=== PATIENT | female | born 2005 | race Caucasian/White ===

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

== ENCOUNTER 2024-03-05 10:26 | Emergency (ER) | payer BC, SELFPAY ==
[2024-03-05 10:37] VITALS: BP 119/86
[2024-03-05 10:38] LABS: Glucose - Point of Care 95 mg/dl (70-99)
[2024-03-05 10:59] LABS: % Basophils 0.6 % (0-2); % Immature Granulocytes 0.3 % (0-0.5); % Lymphocytes 27.7 % (20.5-51.1); % Neutrophils 61.4 % (42.2-75.2); Absolute Basophils 0.1 10^3/uL (0-0.2); Absolute Eosinophils 0.2 10^3/uL (0-0.7); Absolute Lymphocytes 2.7 10^3/uL (1.2-3.4); Absolute Monocytes 0.8 10^3/uL (0.1-0.6); Hematocrit 42.4 % (37.0-47.0); Hemoglobin 13.6 g/dL (12.0-16.0); Mean Corp Hgb Conc. 32.1 g/dL (33.0-37.0); Mean Corpuscular Hgb 25.4 pg (27.0-31.0); Mean Corpuscular Volume 79.3 fL (81.0-99.0); Mean Platelet Volume 10.1 fL (7.4-10.4); Nucleated Red Blood Cells % 0 %; Platelet Count 342 10^3/uL (130-400); Red Blood Cell Count 5.35 10^6/uL (4.20-5.40); Red Cell Dist. Width 13.2 % (11.5-14.5); White Blood Cell Count 9.7 10^3/uL (4.8-10.8)
[2024-03-05 11:16] LABS: HCG, Serum Qualitative Screen Negative
[2024-03-05 11:32] LABS: ALT (SGPT) 13 U/L (0-35); AST (SGOT) 19 U/L (14-36); Albumin 4.5 g/dl (3.5-5.0); Alkaline Phosphatase 84 U/L (38-126); Blood Urea Nitrogen 7 mg/dl (7-17); Calcium 9.2 mg/dl (8.4-10.2); Carbon Dioxide 24 mmol/L (22-30); Chloride 105 mmol/L (98-107); Glucose 99 mg/dl (70-99); Potassium 4.3 mmol/L (3.5-5.1); Sodium 139 mmol/L (135-145); Total Bilirubin 0.5 mg/dl (0.2-1.3); Total Protein 7.5 g/dl (6.3-8.2); eGFR > 60.00
--- NOTE | 2024-03-05 12:44 | ED.GENMED ---
History of Present Illness
General
Chief Complaint: Weakness
Time Seen by Provider: 03/05/24 12:16
History of Present Illness
History of Present Illness:
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
morning. Increased thirst. Concern for low sodium. Has used her desmopressin as prescribed today.
Past History
Past History
ED Past Medical History: Psychiatric
ED Past Surgical History: Other (Rathke cleft surgery)
Social History
Personal: Single
Living: with family
Review of Systems
Review of Systems
Allergies reviewed?: Yes
All Other Systems: ROS reviewed and negative except as documented in HPI and ROS
Phy Exam
Physical Exam
Physical Exam:
GEN: Well appearing, NAD, WDWN
HEENT: Oral mucosa moist, no scleral icterus
Cardiac: Regular rate and rhythm, no murmurs
Lung: No respiratory distress, no tachypnea, lungs clear to auscultation bilaterally
Abdomen: Soft, grossly nontender
MSK: No gross deformity or injuries
Skin: Good color, no pallor or jaundice, no rashes
Neuro: AO x3, moves all extremities freely
Psych: Calm, cooperative
Course
Orders/Labs/Results
Orders:
Orders
03/05/24 10:27
Electrocardiogram (*1) Urgent
Reason for Study: Vertigo / Dizzy
EKG- Treatment ONCE
03/05/24 10:41
Test Result ONCE
03/05/24 10:53
Complete Blood Count/With Diff Urgent
Comprehensive Metabolic Panel Urgent
HCG, Serum Qualitative Screen Urgent
03/05/24 12:46
Ondansetron Orally Disint [Zofran Odt (Orally Disintegrating)] 4 mg PO NOW STA
Abnormal Lab Results
03/05/24
10:53
MCV 79.3 L fL
(81.0-99.0)
MCH 25.4 L pg
(27.0-31.0)
MCHC 32.1 L g/dL
(33.0-37.0)
Absolute Monos (auto) 0.8 H 10^3/uL
(0.1-0.6)
Creatinine 0.5 L mg/dL
(0.6-1.0)
03/05/24 10:53
03/05/24 10:53
Vital Signs
Initial and Last Documented VS:
Initial Vital Signs
Temp Pulse Resp BP Pulse Ox
98.3 F 77 16 119/86 97
03/05/24 10:37 03/05/24 10:37 03/05/24 10:37 03/05/24 10:37 03/05/24 10:37
Last Documented Vital Signs
Temp Pulse Resp BP Pulse Ox
98.3 F 77 16 119/86 97
03/05/24 10:37 03/05/24 10:37 03/05/24 10:37 03/05/24 10:37 03/05/24 10:37
MDM/Problems Addressed
MDM/Problems Addressed:
Patient is clinically well-appearing, labs are reassuring, normal sodium levels. Offered IV fluids however patient would prefer to be discharged home given her normal labs, will treat with antiemetics
*Critical Care Note
Total Time (30-74mins, 75-104mins- exclusive of procedures): Not Applicable
ED Attending Note
-
Portions of this chart may have been created with voice recognition software.� Occasional wrong word or��sound alike� substitutions may have occurred due to the inherent limitations of voice recognition software.
Discharge Plan
Departure
Patient Disposition: Home (Routine Discharge)
Date of Disposition: 03/05/24
Time of Disposition: 12:46
Patient with high blood pressure during this ER visit?: No
Discharge Problem:
Gastroenteritis
Instructions: Viral gastroenteritis in adults
Prescriptions:
New
ondansetron 4 mg tablet,disintegrating
4 mg PO TIDPRN PRN (Reason: nausea/vomiting) Qty: 10 0RF
No Action
desmopressin 10 mcg/spray (0.1 mL) spray with pump
3 spray intranasal BID
Referrals:
Hallie Hernandez PA-C [Family Provider] -
Interventions
Interventions:
*Risk Screen - Suicide Last Done: 03/05/24 10:37
*General Assessment Last Done: 03/05/24 12:22
*Neglect/Abuse Screening Last Done: 03/05/24 12:22
*ED COVID-19 Vaccine History Last Done: 03/05/24 12:22
*Nursing Disposition Last Done: 03/05/24 12:58
ED- Cardiac Assessment Last Done: 03/05/24 12:37
ED- Neurological Assessment Last Done: 03/05/24 12:37
ED- Pulmonary Assessment Last Done: 03/05/24 12:37
Discharge Date and Time
Discharge Date/Time: 03/05/24 12:58
Print Language: PERUVIAN
[2024-03-05] MEDS: ZOFRAN ODT (ORALLY DISINTEGRATING) 4 MG PO (12:48)
== END 2024-03-05 12:58 | disposition home or self-care (01) ==
LOC: EMR 10:26
PROVIDERS: EMERGENCY PHYSICIAN Emergency Medicine; FAMILY PHYSICIAN Physician Assistant Medical
DX: K52.9 Noninfective gastroenteritis and colitis, unspecified (principal); E23.2 Diabetes insipidus; Z98.890 Other specified postprocedural states
CPT/HCPCS: 99284; 80053; 82962; 84703; 85025; 93005

== ENCOUNTER → 2024-05-20 09:13 | Outpatient (REF) | payer BC, SELFPAY ==
[2024-05-20 10:30] LABS: % Basophils 0.5 % (0-2); % Eosinophils 2.5 % (0-6); % Immature Granulocytes 0.3 % (0-0.5); % Lymphocytes 32.6 % (20.5-51.1); % Monocytes 7.9 % (1.7-9.3); % Neutrophils 56.2 % (42.2-75.2); Absolute Basophils 0.1 10^3/uL (0-0.2); Absolute Eosinophils 0.3 10^3/uL (0-0.7); Absolute Lymphocytes 3.6 10^3/uL (1.2-3.4); Absolute Monocytes 0.9 10^3/uL (0.1-0.6); Absolute Neutrophils 6.3 10^3/uL (1.4-6.5); Hematocrit 43.6 % (37.0-47.0); Hemoglobin 13.8 g/dL (12.0-16.0); Mean Corp Hgb Conc. 31.7 g/dL (33.0-37.0); Mean Corpuscular Hgb 25.7 pg (27.0-31.0); Mean Corpuscular Volume 81.3 fL (81.0-99.0); Mean Platelet Volume 10.3 fL (7.4-10.4); Nucleated Red Blood Cells % 0 %; Platelet Count 400 10^3/uL (130-400); Red Blood Cell Count 5.36 10^6/uL (4.20-5.40); White Blood Cell Count 11.2 10^3/uL (4.8-10.8)
[2024-05-20 10:55] LABS: HDL Cholesterol 42 mg/dl; LDL Cholesterol, Calculated 66 mg/dl; Total Cholesterol 119 mg/dl (50-199); Triglyceride 56 mg/dl (10-149); Very Low Density Lipoprotein 11 mg/dl (0-30)
[2024-05-20 10:56] LABS: ALT (SGPT) 14 U/L (0-35); AST (SGOT) 17 U/L (14-36); Albumin 4.3 g/dl (3.5-5.0); Alkaline Phosphatase 84 U/L (38-126); Blood Urea Nitrogen 7 mg/dl (7-17); Carbon Dioxide 29 mmol/L (22-30); Chloride 108 mmol/L (98-107); Glucose 90 mg/dl (70-99); Sodium 148 mmol/L (135-145); Total Bilirubin 0.6 mg/dl (0.2-1.3); Total Protein 7.4 g/dl (6.3-8.2); eGFR > 60.00
[2024-05-20 11:24] LABS: TSH 0.86 uIU/ml (0.47-4.68)
[2024-05-20 11:27] LABS: Ferritin 14.5 ng/ml (6.24-137)
[2024-05-20 11:44] LABS: Hepatitis C Antibody Negative (Negative)
== END ==
LOC: REG 09:13
PROVIDERS: ATTENDING PHYSICIAN Internal Medicine Endocrinology, Diabetes & Metabolism; FAMILY PHYSICIAN Physician Assistant Medical
DX: Z00.00 Encounter for general adult medical examination without abnormal findings (principal); E23.6 Other disorders of pituitary gland; N94.6 Dysmenorrhea, unspecified; N92.1 Excessive and frequent menstruation with irregular cycle; Z11.59 Encounter for screening for other viral diseases; E23.2 Diabetes insipidus
CPT/HCPCS: 36415; 80053; 80061; 82728; 84443; 85025; 86803

== ENCOUNTER 2024-07-14 00:09 | Emergency (ER) | payer BC, SELFPAY ==
[2024-07-14 00:10] VITALS: BP 117/78
--- NOTE | 2024-07-14 00:23 | ED.GENMED ---
History of Present Illness
General
Chief Complaint: Headache
Source: patient
Exam Limitations: none
Time Seen by Provider: 07/14/24 00:20
Nursing documentation reviewed up to this point in time: agreed with
History of Present Illness
History of Present Illness:
19-year-old female with a past medical history of central diabetes insipidus, rathke cleft pituitary cyst, tobacco use, presents to the emergency department today with concerns of headache. Patient reports that she has a history of ocular migraines
and gets daily headaches and started to develop headache a few hours ago. Patient reports that the quality of her headache feels like her typical migraines however she reports that the migraine currently that she has has never lasted this long
before and she started to develop an aura component with this which she has not had in a few months. Of note, patient had brain surgery Dr. Joseph Fierro at [place] around 2 years ago and is due for her yearly MRI checkup in 3 days. Patient is
requesting an MRI today to assess for recurrence of the tumor. Patient does note some nausea but denies any vomiting, denies any neck pain, denies any numbness or tingling her extremities, denies any loss of consciousness. She denies any chest
pain or shortness of breath. Patient does not take a daily rescue medication for her headaches. Of note, her primary care provider has started her on steroids in the past to help break the pattern of headaches. Patient will occasionally take
Excedrin but states that when she does, she will get a breakthrough headache.
Past History
Past History
ED Past Medical History: Psychiatric
ED Past Surgical History: Other (Rathke cleft surgery)
Social History
Personal: Single
Living: with family
Review of Systems
Review of Systems
All Other Systems: ROS reviewed and negative except as documented in HPI and ROS
Phy Exam
Physical Exam
Physical Exam:
General: Patient is well appearing and in no acute distress; non-toxic
Skin: Warm and dry, no rashes or lesions
Head: Normocephalic, atraumatic
Eyes: Sclera non-icteric. EOMs intact. No nystagmus.
Cardiac: Regular rate and rhythm, no murmurs
Peripheral Vascular: No lower extremity swelling or edema
Pulm: Normal respiratory effort
Neuro: CN II-XII intact, no focal neurologic deficits. Normal finger to nose, heel to noyola testing.
Psychiatric: Appropriate mood and affect.
Course
Orders/Labs/Results
Orders:
Orders
07/14/24 00:38
IV Insert/Care/Rem.- Treatment PRN
Ketorolac [Toradol] 10 mg PO NOW STA
Metoclopramide [Reglan] 10 mg PO NOW STA
07/14/24 00:41
Test Result ONCE
07/14/24 00:47
Ketorolac [Toradol] 10 mg PO NOW STA
07/14/24 00:53
Complete Blood Count/With Diff Urgent
Comprehensive Metabolic Panel Urgent
HCG, Serum Qualitative Screen Urgent
Magnesium Urgent
07/14/24 00:58
CT Head W/o Iv Contrast Urgent
Comment:
Reason For Exam: headache, hx of transphenoidal rathke cyst resecti
Abnormal Lab Results
07/14/24
00:53
WBC 12.5 H 10^3/uL
(4.8-10.8)
MCV 79.2 L fL
(81.0-99.0)
MCH 25.9 L pg
(27.0-31.0)
MCHC 32.7 L g/dL
(33.0-37.0)
Absolute Lymphs (auto) 4.7 H 10^3/uL
(1.2-3.4)
Absolute Monos (auto) 0.8 H 10^3/uL
(0.1-0.6)
Chloride 112 H mmol/L
(98-107)
BUN 6 L mg/dl
(7-17)
Creatinine 0.5 L mg/dL
(0.6-1.0)
07/14/24 00:53
07/14/24 00:53
Vital Signs
Initial and Last Documented VS:
Initial Vital Signs
Temp Pulse Resp BP Pulse Ox
98.2 F 90 16 117/78 99
07/14/24 00:10 07/14/24 00:10 07/14/24 00:10 07/14/24 00:10 07/14/24 00:10
Last Documented Vital Signs
Temp Pulse Resp BP Pulse Ox
98.2 F 77 16 105/68 98
07/14/24 00:10 07/14/24 02:12 07/14/24 02:12 07/14/24 02:12 07/14/24 02:12
MDM/Problems Addressed
Differential Diagnosis Includes:
migraine headache/ocular migraine, tension headache, brain tumor, hemorrhage/CVA
MDM/Problems Addressed:
19-year-old female with past medical history of migraines, pituitary cyst, presents emergency department today with concerns of a headache. Patient reports that it feels similar to her ocular migraines however is never lasted this long before.
Patient and family concerned about recurrence of her tumor. Will order CAT scan. Patient is currently declining IV medications. Will trial oral Toradol and Reglan. Patient currently declines Benadryl as she has had an adverse reaction to this
medication in the past. Will trial oral Toradol and Reglan. Patient has a nonfocal neurologic exam.
On reexamination, patient is feeling well no acute distress she does still notice some pain but is declining further pain medication at this time. CBC unremarkable CMP shows no signs of hyponatremia. CT scan shows hemorrhage, no large mass causing
edema or mass affect. Patient does have a follow-up appointment with her neurologist this week and has a scheduled MRI in a few days. Patient feels well and is ready go home. Patient stable for discharge.
Chronic conditions affecting care:
central diabetes insipidus, anxiety,
*Pulse Oximetry
Patient hypoxic: no
*Critical Care Note
Total Time (30-74mins, 75-104mins- exclusive of procedures): Not Applicable
Data Reviewed
Review of Other/Old Records Reveals: Records (Reviewed discharge summary from 09/27/2022, patient seen for worsening polydipsia, polyuria, initial presentation for diabetes insipidus was placed on DDAVP with nasal spray)
Source: patient and records
Patient Management
Escalation/DeEscalation of care consider admission/obs:
Admit not indicated, patient stable for discharge
Update Note
Update Note:
1:35 AM-- Update back in to see patient, patient does note an improvement of her symptoms; did offer additional medications but patient states that she feels well at this time; patient states that she has been on steroids in the past for intractable
headaches--did offer decadron however will hold off at this time considering risk of hyponatremia with desmopressin
ED Attending Note
-
Portions of this chart may have been created with voice recognition software.� Occasional wrong word or��sound alike� substitutions may have occurred due to the inherent limitations of voice recognition software.
Discharge Plan
Departure
Patient Disposition: Home (Routine Discharge)
Date of Disposition: 07/14/24
Time of Disposition: 03:06
Patient with high blood pressure during this ER visit?: No
Condition: Good
Discharge Problem:
Migraine
Instructions: Migraines (DC), BLOOD PRESSURE
Prescriptions:
No Action
desmopressin 10 mcg/spray (0.1 mL) spray with pump
3 spray intranasal BID
ondansetron 4 mg tablet,disintegrating
4 mg PO TIDPRN PRN (Reason: nausea/vomiting) Qty: 10 0RF
Referrals:
Hallie Hernandez PA-C [Family Provider] -
Stand Alone Forms: Back to School
Activity Restrictions/Additional Instructions:
Please follow up with your neurologist and proceed with your scheduled MRI.
PLEASE RETURN TO EMERGENCY DEPARTMENT SHOULD YOU DEVELOP DOUBLE VISION, WEAKNESS ON ONE SIDE VERSUS OTHER, VISUAL LOSS, NECK PAIN, LOSS OF CONSCIOUSNESS, DIZZINESS, LIGHTHEADEDNESS, ACUTE WORSENING OF YOUR SYMPTOMS, OR ANY OTHER SIGNS OR SYMPTOMS
WORRISOME TO
Interventions
Interventions:
*Risk Screen - Suicide Last Done: 07/14/24 00:14
*General Assessment Last Done: 07/14/24 00:14
*Neglect/Abuse Screening Last Done: 07/14/24 03:09
*ED COVID-19 Vaccine History Last Done: 07/14/24 00:14
*Nursing Disposition Last Done: 07/14/24 03:09
ED- Neurological Assessment Last Done: 07/14/24 01:01
Discharge Date and Time
Discharge Date/Time: 07/14/24 03:16
Print Language: [id number]
[2024-07-14] MEDS: TORADOL 10 MG PO (00:58)
[2024-07-14] MEDS: REGLAN 10 MG PO (00:58)
[2024-07-14 01:01] VITALS: BMI 23.9
[2024-07-14 01:02] LABS: % Basophils 0.5 % (0-2); % Eosinophils 2.7 % (0-6); % Immature Granulocytes 0.2 % (0-0.5); % Lymphocytes 37.9 % (20.5-51.1); % Monocytes 6.6 % (1.7-9.3); % Neutrophils 52.1 % (42.2-75.2); Absolute Basophils 0.1 10^3/uL (0-0.2); Absolute Eosinophils 0.3 10^3/uL (0-0.7); Absolute Lymphocytes 4.7 10^3/uL (1.2-3.4); Absolute Monocytes 0.8 10^3/uL (0.1-0.6); Absolute Neutrophils 6.5 10^3/uL (1.4-6.5); Hematocrit 39.5 % (37.0-47.0); Hemoglobin 12.9 g/dL (12.0-16.0); Mean Corp Hgb Conc. 32.7 g/dL (33.0-37.0); Mean Corpuscular Hgb 25.9 pg (27.0-31.0); Mean Corpuscular Volume 79.2 fL (81.0-99.0); Mean Platelet Volume 10.1 fL (7.4-10.4); Nucleated Red Blood Cells % 0 %; Platelet Count 330 10^3/uL (130-400); Red Blood Cell Count 4.99 10^6/uL (4.20-5.40); Red Cell Dist. Width 13.1 % (11.5-14.5); White Blood Cell Count 12.5 10^3/uL (4.8-10.8)
[2024-07-14 01:18] LABS: HCG, Serum Qualitative Screen Negative
[2024-07-14 01:20] LABS: ALT (SGPT) 11 U/L (0-35); AST (SGOT) 14 U/L (14-36); Albumin 4.3 g/dl (3.5-5.0); Alkaline Phosphatase 79 U/L (38-126); Blood Urea Nitrogen 6 mg/dl (7-17); Calcium 9.3 mg/dl (8.4-10.2); Carbon Dioxide 25 mmol/L (22-30); Chloride 112 mmol/L (98-107); Estimated Creatinine Clearance > 125 ml/min; Glucose 95 mg/dl (70-99); Magnesium 1.9 mg/dl (1.6-2.3); Potassium 4.1 mmol/L (3.5-5.1); Sodium 144 mmol/L (135-145); Total Bilirubin 0.4 mg/dl (0.2-1.3); Total Protein 6.9 g/dl (6.3-8.2); eGFR > 60.00
[2024-07-14 02:12] VITALS: BP 105/68
== END 2024-07-14 03:16 | disposition home or self-care (01) ==
LOC: EMR 00:09
PROVIDERS: Physician Assistant; EMERGENCY PHYSICIAN Emergency Medicine; FAMILY PHYSICIAN Physician Assistant Medical
DX: G43.909 Migraine, unspecified, not intractable, without status migrainosus (principal); R11.0 Nausea; E23.2 Diabetes insipidus; F41.9 Anxiety disorder, unspecified; D64.9 Anemia, unspecified; Z88.0 Allergy status to penicillin; Z91.048 Other nonmedicinal substance allergy status
CPT/HCPCS: 99284; 70450; 80053; 83735; 84703; 85025

== ENCOUNTER → 2024-07-16 16:03 | Outpatient (REF) | payer BC, SELFPAY | LOC: MRI 16:03 | PROVIDERS: ATTENDING PHYSICIAN Physician Assistant Medical; FAMILY PHYSICIAN Neurological Surgery | DX: R51.9 Headache, unspecified (principal); Z84.89 Family history of other specified conditions; H53.9 Unspecified visual disturbance | CPT/HCPCS: 70553; A9575 ==

== ENCOUNTER → 2025-02-18 11:02 | Outpatient (REF) | payer BC, SELFPAY | LOC: MRI 3T 11:02 | PROVIDERS: ATTENDING PHYSICIAN Neurological Surgery | DX: E23.6 Other disorders of pituitary gland (principal) | CPT/HCPCS: 70553; A9575 ==